=== PATIENT | male | born 1965 | race Caucasian/White ===

== ENCOUNTER 2017-01-02 15:09 | Emergency (ER) | payer OTHER ==
[~2017-01-02 15:09] MED LIST: ASPI-973 PO; OXYC5CAP4 PO; PRE20 PO; lisinopril PO
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
[2017-01-02] MEDS ORDERED: Ondansetron 2 mg/mL 2 mL Inj IVPUSH PRN (15:30)
[2017-01-02] MEDS ORDERED: HYDROmorphone 0.5 mg/0.5 mL iSecure Syringe IVPUSH PRN (15:30)
[2017-01-02] MEDS ORDERED: TdaP Vaccine 0.5 mL Inj IM ONE (15:35)
[2017-01-02 15:36] LABS: EOSINOPHILS % (AUTO) 3.4 % (0-5); MONOCYTES % (AUTO) 10.9 % (4-12); Mean Corpuscular Hemoglobin 33.9 pg (27.0-35.0); NEUTROPHILS % (AUTO) 50.6 % (40-74); Platelet Count 184 bil/L (150-400)
[2017-01-02 15:47] LABS: INR 1.11 ratio
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
[2017-01-02 16:56] VITALS: BP 171/114; PULSE 72; RESP 18; O2SAT 95
[2017-01-02 17:19] VITALS: BP 171/114; PULSE 72; RESP 18; O2SAT 95
== END 2017-01-02 17:19 | disposition short-term general hospital (02) ==
LOC: EDUNIT# 15:09 → EDBD 15:09 → SED 15:09
DX: S05.32XA Ocular laceration without prolapse or loss of intraocular tissue, left eye, initial encounter (principal); S89.91XA Unspecified injury of right lower leg, initial encounter; F10.120 Alcohol abuse with intoxication, uncomplicated; V83.0XXA Driver of special industrial vehicle injured in traffic accident, initial encounter; Y93.89 Activity, other specified; Y99.0 Civilian activity done for income or pay; Y92.410 Unspecified street and highway as the place of occurrence of the external cause; I10 Essential (primary) hypertension; F12.10 Cannabis abuse, uncomplicated; Z79.82 Long term (current) use of aspirin; Z87.891 Personal history of nicotine dependence; Z23 Encounter for immunization
CPT/HCPCS: 36415; 70450; 70486; 71010; 72125; 80053; 85025; 85610; 86850; 90471; 90715; 93005; 96374; 96375; 99291; G0480; J1170; J2405

== ENCOUNTER 2017-01-11 09:57 | Emergency (ER) | payer OTHER ==
[~2017-01-11] VITALS: Ht 172.7 cm; Wt 90.9 kg
[2017-01-11 10:01] VITALS: BP 145/92; PULSE 74; RESP 16; O2SAT 96
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
== END 2017-01-11 10:48 | disposition home or self-care (01) ==
LOC: SED 09:57
DX: S80.01XA Contusion of right knee, initial encounter (principal); S30.1XXA Contusion of abdominal wall, initial encounter; V49.60XA Unspecified car occupant injured in collision with unspecified motor vehicles in traffic accident, initial encounter; Y93.89 Activity, other specified; Y92.9 Unspecified place or not applicable; Y99.8 Other external cause status; I10 Essential (primary) hypertension; Z87.891 Personal history of nicotine dependence; Z79.82 Long term (current) use of aspirin